=== PATIENT | male | born 1960 | race Caucasian/White ===

== ENCOUNTER 2016-06-27 21:50 | Inpatient (IN) | payer BC, OTHER ==
[~2016-06-27] VITALS: Ht 167.6 cm; Wt 59.1 kg
[2016-06-27 22:28] LABS: HEMATOCRIT 36.1 % (42-52); MEAN CELL VOLUME 95.8 fL (80-100); MEAN CORPUSCULAR HEMOGLOBIN 33.2 pg (25-34); MEAN CORPUSCULAR HGB CONC 34.6 g/dl (32-36); MEAN PLATELET VOLUME 9.6 fL (7.4-10.4); PLATELET COUNT 224 K/uL (130-400); RED BLOOD COUNT 3.77 M/uL (4.7-6.1); WHITE BLOOD COUNT 8.31 K/uL (4.8-10.8)
--- NOTE | 2016-06-27 22:35 | DIAGNOSTIC IMAGING REPORT ---
CHEST ONE VIEW PORTABLE CLINICAL HISTORY: Chest pain. COMPARISON STUDY: No previous studies for comparison. FINDINGS: Lung volumes are normal. No pneumothorax or pleural effusion is present. Cardiac size is normal. Mediastinal contours are normal. There is mild interstitial thickening. No consolidation is identified IMPRESSION: 1. Mild interstitial thickening which could reflect pulmonary edema. 2. No consolidation to suggest pneumonia. Electronically signed by: Moe Pierce M.D. 06/27/2016 10:34 PM Dictated Date/Time: 06/27/2016 10:33 PM
[2016-06-27 22:36] LABS: PARTIAL THROMBOPLASTIN RATIO 1.1; PROTHROMBIN TIME (PATIENT) 11.1 SECONDS (9.0-12.0)
[2016-06-27 22:43] LABS: BLOOD UREA NITROGEN 14 mg/dl (7-18); CALCIUM 8.4 mg/dl (8.5-10.1); CARBON DIOXIDE 34 mmol/L (21-32); CHLORIDE 103 mmol/L (98-107); GLUCOSE 91 mg/dl (70-99); POTASSIUM 3.5 mmol/L (3.5-5.1); SODIUM 139 mmol/L (136-145)
[2016-06-27] MEDS ORDERED: MELATAB2 PO (22:44)
[2016-06-27] MEDS ORDERED: CTP/1 PO (22:44)
[2016-06-27] MEDS ORDERED: TAMS0.4C38 PO (22:44)
[2016-06-27] MEDS ORDERED: DIAZ-165 PO (22:44)
[2016-06-27] MEDS ORDERED: LEVO150T PO (22:44)
[2016-06-27] MEDS ORDERED: IMD/2 PO (22:44)
[2016-06-27] MEDS ORDERED: CALC500C3 PEG (22:44)
[2016-06-27] MEDS ORDERED: LEVE250T PO (22:44)
[2016-06-27] MEDS ORDERED: DOCU-94 PO (22:44)
[2016-06-27] MEDS ORDERED: ONDA8TAB6 PO (22:44)
[2016-06-27] MEDS ORDERED: CITA40TA12 PO (22:44)
[2016-06-27] MEDS ORDERED: DICY10CA55 PO (22:44)
[2016-06-27] MEDS ORDERED: MULT-506 PO (22:44)
[2016-06-27] MEDS ORDERED: METO50TA16 PO (22:44)
[2016-06-27] MEDS ORDERED: DIPH1TAB PO (22:44)
[2016-06-27] MEDS ORDERED: SUCR1TAB29 PO (22:44)
[2016-06-27] MEDS ORDERED: ACET325T96 PO (22:44)
[2016-06-27] MEDS ORDERED: HYDCR1CL TOP (22:44)
[2016-06-27] MEDS ORDERED: IBUP-1050 PO (22:44)
[2016-06-27] MEDS ORDERED: DIAZ10TA PO ×2 (22:44)
[2016-06-27] MEDS ORDERED: DOXE100C4 PO (22:44)
[2016-06-27] MEDS ORDERED: BACI500O11 TOP (22:44)
[2016-06-27] MEDS ORDERED: BUPR1SUB22 SL (22:44)
[2016-06-27] MEDS ORDERED: PROM25TA9 PO (22:44)
[2016-06-27] MEDS ORDERED: PANT40TA PO (22:44)
[2016-06-27 22:45] LABS: ALT/SGPT 13 U/L (12-78); BUN/CREATININE RATIO 15.8 (10-20); CREATININE 0.88 mg/dl (0.60-1.40)
[2016-06-27 22:53] LABS: ALKALINE PHOSPHATASE 110 U/L (45-117); AST/SGOT 12 U/L (15-37); CKMB/CK RATIO 1.4 (0-3.0)
[2016-06-27 23:04] LABS: BENZODIAZEPINE, URINE POS (NEG); COCAINE,URINE POS (NEG); PHENCYCLIDINE, URINE NEG (NEG)
--- NOTE | 2016-06-27 23:59 | EMERGENCY ROOM VISIT NOTE ---
History Report prepared by Kristopher: Antolin Bangura Under the Supervision of: Dr. Shobha Johnson D.O. First contact with patient: 23:43 Chief Complaint: MENTAL HEALTH EVALUATION Stated Complaint: POSSIBLE DETOX, CHEST PRESSURE, VOMITING History of Present Illness The patient is a 56 year old male who presents to the Emergency Room for an acute mental health evaluation. The patient was admitted to [facility] earlier today. He has a history of IVDA, including cocaine, OxyContin, and Suboxone. He denies alcohol use. The patient started to feel nauseous while at [facility]. He then went to the bathroom and vomited several times. The patient also started to feel lightheaded to the point that he was down on his hands and knees. He denies abdominal pain. The patient started to experience visual and auditory hallucinations today. He does not have a history of hallucinations. He takes Celexa for depression. The patient was in rehab once in 1988. and was sober for 15 years. The patient is from [facility]. Source of History: patient Onset: tonight Position: other (psyche) Quality: other (mental health evaluation) Timing: other (acute) Associated Symptoms: + vomiting, No abdominal pain Review of Systems See HPI for pertinent positives & negatives. A total of 10 systems reviewed and were otherwise negative. Past Medical & Surgical Medical Problems: (1) Depression Social History Problems: (1) IV drug abuse Family History No pertinent family history Social History Smoking Status: Never Smoker Alcohol Use: none Drug Use: cocaine, other (opiates) Current/Historical Medications Scheduled Bacitracin (Topical) (Bacitracin), 1 APPLN TOP BID Buprenorphine Hcl-Naloxone Hcl (Suboxone 2-0.5 Mg), Unknown Dose SL BID Citalopram Hydrobromide (Celexa), 40 MG PO DAILY Diazepam (Valium), 10 MG PO QID Diazepam (Valium), 10 MG PO Q2-4H Diazepam (Valium), Unknown Dose PO UD Levetiracetam (Keppra), 500 MG PO BID Levothyroxine Sodium (Synthroid), 150 MCG PO DAILY Loperamide Hcl (Imodium), 2 MG PO UD Melatonin (Melatonin Maximum Strengt), 1 TAB PO HS Metoprolol Tartrate (Lopressor) (Lopressor), 50 MG PO BID Multivitamin (Multivitamin), 1 TAB PO DAILY Pantoprazole (Protonix), 40 MG PO BID Sucralfate (Carafate), 1 GM PO QID Scheduled PRN Acetaminophen Tab (Tylenol), 1-2 TABS PO Q4 PRN for Pain Calcium Carbonate (Tums), 500 MG PEG UD PRN for Heartburn Clonidine Hcl (Catapres), 0.1 MG PO QID PRN for Anxiety Dicyclomine Hcl (Bentyl), 20 MG PO TID PRN for STOMACH CRAMPS Diphenhydramine Hcl (Benadryl Allergy), 1-2 CAP PO Q6 PRN for ALLERGIC REACTION Docusate Sodium (Colace), 1 CAP PO DAILY PRN for Constipation Doxepin Hcl (Doxepin), 50-100 MG PO HS PRN for Insomnia Hydrocortisone 1% (Hydrocortisone 1%), Unknown Dose TOP UD PRN for Itching Ibuprofen (Advil), 1-2 TABS PO Q4 PRN for Headache or Pain Ondansetron Hcl (Zofran), 8 MG PO TID PRN for Nausea or Vomiting Promethazine Hcl (Phenergan), 25 MG PO TID PRN for Nausea or Vomiting Miscellaneous Medications Tamsulosin Hcl (Flomax), 0.4 MG PO Allergies Coded Allergies: No Known Allergies (Unverified , 06/27/16) Physical Exam Vital Signs Date Time Temp Pulse Resp B/P Pulse Ox O2 Delivery O2 Flow Rate FiO2 06/28/16 01:02 52 06/28/16 00:07 59 99/68 97 06/27/16 22:18 99 Nasal Cannula 2.0 06/27/16 22:18 99 Nasal Cannula 2.0 06/27/16 22:06 36.4 76 16 103/64 99 Nasal Cannula 2.0 06/27/16 21:59 68 Physical Exam General: Patient is lethargic. HEENT: Head - normocephalic and atraumatic Pupils are equal, round, and reactive to light. Extraocular eye muscles are intact, and sclera are anicteric. Nose - moist nasal mucosa without discharge. Mouth - moist buccal mucosa. Oropharynx is nonerythematous and there is no tonsillar exudate or edema noted. Neck: Supple; no JVD, nuchal rigidity, cervical lymphadenopathy. Heart: Regular rate and rhythm. There is a normal S1 and S2 with no murmurs, clicks, or gallops appreciated. Lungs: Clear to auscultation bilaterally with no wheezes, rales, or rhonchi. Abdomen: Soft, completely nontender, nondistended, with good bowel sounds. There are no palpable pulsatile masses or hepatosplenomegaly. There is no guarding, rigidity, or rebound noted. Extremities: No evidence of cyanosis, clubbing, or edema. There are easily palpable peripheral pulses. Skin: warm and dry with good turgor and no rashes. Psych: Patient admits to auditory and visual hallucinations. He denies significant depression or suicidal ideation. Medical Decision & Procedures ER Provider Diagnostic Interpretation: X-ray results as stated below per interpretation by me and the radiologist: CHEST ONE VIEW PORTABLE CLINICAL HISTORY: Chest pain. COMPARISON STUDY: No previous studies for comparison. FINDINGS: Lung volumes are normal. No pneumothorax or pleural effusion is present. Cardiac size is normal. Mediastinal contours are normal. There is mild interstitial thickening. No consolidation is identified IMPRESSION: 1. Mild interstitial thickening which could reflect pulmonary edema. 2. No consolidation to suggest pneumonia. Electronically signed by: Moe Pierce M.D. 06/27/2016 10:34 PM Dictated Date/Time: 06/27/2016 10:33 PM Laboratory Results 06/27/16 21:59 06/27/16 21:59 Test 06/27/16 21:59 06/27/16 22:25 Red Blood Count 3.77 M/uL (4.7-6.1) Mean Corpuscular Volume 95.8 fL (80-100) Mean Corpuscular Hemoglobin 33.2 pg (25-34) Mean Corpuscular Hemoglobin Concent 34.6 g/dl (32-36) RDW Standard Deviation 47.1 fL (36.4-46.3) RDW Coefficient of Variation 13.4 % (11.5-14.5) Mean Platelet Volume 9.6 fL (7.4-10.4) Prothrombin Time 11.1 SECONDS (9.0-12.0) Prothromb Time International Ratio 1.0 (0.9-1.1) Activated Partial Thromboplast Time 28.8 SECONDS (21.0-31.0) Partial Thromboplastin Ratio 1.1 Anion Gap 2.0 mmol/L (3-11) Est Creatinine Clear Calc Drug Dose 82.5 ml/min Estimated GFR () 109.7 Estimated GFR (Non- 94.7 BUN/Creatinine Ratio 15.8 (10-20) Calcium Level 8.4 mg/dl (8.5-10.1) Total Bilirubin 0.2 mg/dl (0.2-1) Aspartate Amino Transf (AST/SGOT) 12 U/L (15-37) Alanine Aminotransferase (ALT/SGPT) 13 U/L (12-78) Alkaline Phosphatase 110 U/L (45-117) Total Creatine Kinase 127 U/L (39-308) Creatine Kinase MB 1.8 ng/ml (0.5-3.6) Creatine Kinase MB Ratio 1.4 (0-3.0) Troponin I < 0.015 ng/ml (0-0.045) Total Protein 6.5 gm/dl (6.4-8.2) Albumin 3.2 gm/dl (3.4-5.0) Globulin 3.3 gm/dl (2.5-4.0) Albumin/Globulin Ratio 1.0 (0.9-2) Salicylates Level 23.2 mg/dl (2.8-20) Acetaminophen Level < 2 ug/ml (10-30) Ethyl Alcohol mg/dL < 3.0 mg/dl (0-3) Urine Opiates Screen POS (NEG) Urine Methadone, Qualitative NEG (NEG) Urine Barbiturates NEG (NEG) Urine Phencyclidine (PCP) Level NEG (NEG) Ur Amphetamine/Methamphetamine NEG (NEG) MDMA (Ecstasy) Screen NEG (NEG) Urine Benzodiazepines Screen POS (NEG) Urine Cocaine Metabolite POS (NEG) Urine Marijuana (THC) NEG (NEG) Laboratory results per my review. ECG Indication: toxicologic Rate (beats per minute): 68 Rhythm: normal sinus Findings: no acute ischemic change, no ectopy ED Course 2351: Past medical records reviewed. The patient was evaluated in room A7. A complete history and physical exam was performed. An IV lock was initiated and labs are drawn as above. A twelve-lead EKG was obtained as described above. The patient had a chest x-ray. A urine specimen was obtained. 0100: Spoke with Dr. Hennessy, [facility]. The patient will be evaluated. Medical Decision The patient is a 56 year old male who presents to the ED for a mental health evaluation. Differential diagnosis includes auditory hallucinations, visual hallucinations, cocaine abuse, opioid abuse, mood disorder. Laboratory interpretation: No white blood cell count, slightly anemic with a hemoglobin of 12.5, negative troponin, normal renal function and LFTs, glucose is 91, normal coagulation studies, alcohol was negative, tox screen was positive for opiates cocaine and benzos, salicylates 23.2, Tylenol less than 2. This is a 48-year-old male patient with a history of polysubstance abuse. He has been abusing IV cocaine, opioids, and Suboxone. He has sought rehabilitation at [facility] but began to develop hallucinations tonight. These may be symptoms of withdrawal. I have discussed the case with the [facility] and they will evaluate for further management. Consults Time Called: 54 Consulting Physician: Dr. Hennessy, [facility] Returned Call: [phone]: Spoke with Dr. Hennessy, [facility]. The patient will be evaluated. Impression Primary Impression: Opiate withdrawal Additional Impression: Thought disorder Scribe Attestation The scribe's documentation has been prepared under my direction and personally reviewed by me in its entirety. I confirm that the note above accurately reflects all work, treatment, procedures, and medical decision making performed by me. Departure Information Dispostion Being Evaluated By Hospitalist Patient Instructions My [facility] Health Problem Qualifiers
[2016-06-28] VITALS (10 sets, daily range): BP systolic 94–131; BP diastolic 59–77; PULSE 43–98; TEMP 36.2–36.7; O2SAT 95–98; Ht 167.6 cm; Wt 59.1 kg
[2016-06-28 00:01] LABS: ACETAMINOPHEN < 2 ug/ml (10-30)
[2016-06-28] MEDS ORDERED: ONDANSETRON INJ 2 MG/ML 2 ML VIAL IV PRN (02:15)
[2016-06-28] MEDS ORDERED: ZOLPIDEM TARTRATE 5 MG TAB PO PRN (02:15)
[2016-06-28] MEDS ORDERED: CALCIUM CARBONATE 500 MG CHEWABLE PO PRN (02:15)
[2016-06-28] MEDS ORDERED: LORAZEPAM INJ 1 MG in SYRINGE 0.5 ML IV PRN (02:15)
[2016-06-28] MEDS ORDERED: LORAZEPAM 2 MG/ML 1 ML VIAL IV PRN ×2 (02:15→02:45)
[2016-06-28] MEDS ORDERED: PROMETHAZINE HCL INJ 25 MG in SODIUM CHLORIDE 0.9% 50ML 50 ML IV PRN (02:15)
[2016-06-28] MEDS ORDERED: ACETAMINOPHEN 325 MG TAB PO PRN (02:15)
[2016-06-28] MEDS ORDERED: DOCUSATE SODIUM 100 MG CAP PO PRN (02:15)
[2016-06-28] MEDS ORDERED: HYDROCORTISONE 1% CR 30 GM TUBE EXT PRN (02:15)
[2016-06-28] MEDS ORDERED: DiphenhydrAMINE HCL 50 MG/ML VIAL IV PRN (02:15)
[2016-06-28] MEDS ORDERED: DICYCLOMINE HCL 10 MG CAP PO PRN (02:15)
[2016-06-28] MEDS ORDERED: LOPERAMIDE HCL 2 MG CAP PO PRN (02:15)
[2016-06-28] MEDS ORDERED: DIAZEPAM 5MG TAB PO STA (02:22)
[2016-06-28] MEDS: NSS + 20MEQ KCL 1000ML 1,000 ML IV SCH ×3 (03:05→22:55)
--- NOTE | 2016-06-28 04:33 | History and Physical ---
History & Physical Date & Time of Service: Jun 28, 2016 at 04:23 Chief Complaint: Acute Drug Withdrawal Syndrome Primary Care Physician: No Doctor, Assigned History of Present Illness Source: patient, clinic records The patient is a 56-year-old male who is admitted earlier in the day to [facility] in [place], she was referred to the emergency department for an acute mental health evaluation. He has history of IVDA, including cocaine, OxyContin and Suboxone. When he arrived at [facility] he started to feel nauseous, then went to the bathroom and vomited several times. He became so lightheaded that he went down on his hands and knees. He began to experience visual and auditory hallucinations, without previous occurrence of these. He has history of being admitted to rehabilitation in 1988. His home is in [place], [place]. Past Medical/Surgical History Medical Problems: (1) Depression Status: Chronic Social History Problems: (1) IV drug abuse Status: Chronic Family History No pertinent family history Social History Smoking Status: Current Every Day Smoker Smokeless Tobacco Use: No Alcohol Use: none Drug Use: cocaine, other (opiates) Marital Status: Housing status: lives with family Occupational Status: employed Multi-Drug Resistant [employer] History of MDRO: No Allergies Coded Allergies: No Known Allergies (Unverified , 06/27/16) Home Medications Scheduled Bacitracin (Topical) (Bacitracin), 1 APPLN TOP BID Buprenorphine Hcl-Naloxone Hcl (Suboxone 2-0.5 Mg), Unknown Dose SL BID Citalopram Hydrobromide (Celexa), 40 MG PO DAILY Diazepam (Valium), 10 MG PO QID Diazepam (Valium), 10 MG PO Q2-4H Diazepam (Valium), Unknown Dose PO UD Levetiracetam (Keppra), 500 MG PO BID Levothyroxine Sodium (Synthroid), 150 MCG PO DAILY Loperamide Hcl (Imodium), 2 MG PO UD Melatonin (Melatonin Maximum Strengt), 1 TAB PO HS Metoprolol Tartrate (Lopressor) (Lopressor), 50 MG PO BID Multivitamin (Multivitamin), 1 TAB PO DAILY Pantoprazole (Protonix), 40 MG PO BID Sucralfate (Carafate), 1 GM PO QID Scheduled PRN Acetaminophen Tab (Tylenol), 1-2 TABS PO Q4 PRN for Pain Calcium Carbonate (Tums), 500 MG PEG UD PRN for Heartburn Clonidine Hcl (Catapres), 0.1 MG PO QID PRN for Anxiety Dicyclomine Hcl (Bentyl), 20 MG PO TID PRN for STOMACH CRAMPS Diphenhydramine Hcl (Benadryl Allergy), 1-2 CAP PO Q6 PRN for ALLERGIC REACTION Docusate Sodium (Colace), 1 CAP PO DAILY PRN for Constipation Doxepin Hcl (Doxepin), 50-100 MG PO HS PRN for Insomnia Hydrocortisone 1% (Hydrocortisone 1%), Unknown Dose TOP UD PRN for Itching Ibuprofen (Advil), 1-2 TABS PO Q4 PRN for Headache or Pain Ondansetron Hcl (Zofran), 8 MG PO TID PRN for Nausea or Vomiting Promethazine Hcl (Phenergan), 25 MG PO TID PRN for Nausea or Vomiting Miscellaneous Medications Tamsulosin Hcl (Flomax), 0.4 MG PO Review of Systems The patient denies chest pain, palpitations, shortness of breath, cough, lower extremity swelling, vision change, hearing change, sore throat, fevers, chills, sweats, abdominal pain, pelvic pain, blood in urine or stool, dysuria, urinary frequency or urgency, headache, memory loss, rash, abnormal bruising or bleeding, imbalance, focal weakness, numbness or tingling in arms or legs, arthralgias or myalgias, back or neck pain, or allergy symptoms. The review of systems is otherwise negative other than for that already noted above, and at least 10 systems have been reviewed. Physical Exam Vital Signs Date Time Temp Pulse Resp B/P Pulse Ox O2 Delivery O2 Flow Rate FiO2 06/28/16 03:05 Room Air 06/28/16 03:04 36.4 60 18 113/74 96 Room Air 06/28/16 02:26 36.4 58 16 111/62 98 06/28/16 01:59 36.4 58 111/62 98 Room Air 06/28/16 01:02 52 06/28/16 00:07 59 99/68 97 06/27/16 22:18 99 Nasal Cannula 2.0 06/27/16 22:18 99 Nasal Cannula 2.0 06/27/16 22:06 36.4 76 16 103/64 99 Nasal Cannula 2.0 06/27/16 21:59 68 The patient is awake, alert and oriented 3, appears cachectic and unkempt, normocephalic and atraumatic, lying in bed and in no acute distress. HEENT--PERRL, EOMI, mucous membranes and oropharynx dry. Neck--supple, no JVD or bruits, thyroid normal, trachea midline, no adenopathy. Heart--normal S1 and S2, no extra beats, no murmurs, rubs or gallops. Lungs--decreased breath sounds throughout, no respiratory distress, no accessory muscle use. Abdomen--normal bowel sounds and soft, nontender and nondistended, no hernias or masses, no organomegaly. Extremities--no cyanosis, clubbing or edema. There are good distal pulses b/l. Dermatologic--normal skin turgor, normal color, warm and dry, no abnormal lymph nodes, no rash. Neurologic--cranial nerves II through XII grossly intact, motor and sensory examination normal. Rheumatologic--normal range of motion, nontender, muscles and joints. Psychiatric--depressed, tearful and crying. Diagnostics Laboratory Results Results Past 24 Hours Test 06/27/16 21:59 06/27/16 22:25 Range/Units White Blood Count 8.31 4.8-10.8 K/uL Red Blood Count 3.77 4.7-6.1 M/uL Hemoglobin 12.5 14.0-18.0 g/dL Hematocrit 36.1 42-52 % Mean Corpuscular Volume 95.8 80-100 fL Mean Corpuscular Hemoglobin 33.2 25-34 pg Mean Corpuscular Hemoglobin Concent 34.6 32-36 g/dl RDW Standard Deviation 47.1 36.4-46.3 fL RDW Coefficient of Variation 13.4 11.5-14.5 % Platelet Count 224 130-400 K/uL Mean Platelet Volume 9.6 7.4-10.4 fL Prothrombin Time 11.1 9.0-12.0 SECONDS Prothromb Time International Ratio 1.0 0.9-1.1 Activated Partial Thromboplast Time 28.8 21.0-31.0 SECONDS Partial Thromboplastin Ratio 1.1 Sodium Level 139 136-145 mmol/L Potassium Level 3.5 3.5-5.1 mmol/L Chloride Level 103 98-107 mmol/L Carbon Dioxide Level 34 21-32 mmol/L Anion Gap 2.0 3-11 mmol/L Blood Urea Nitrogen 14 7-18 mg/dl Creatinine 0.88 0.60-1.40 mg/dl Est Creatinine Clear Calc Drug Dose 82.5 ml/min Estimated GFR () 109.7 Estimated GFR (Non- 94.7 BUN/Creatinine Ratio 15.8 10-20 Random Glucose 91 70-99 mg/dl Calcium Level 8.4 8.5-10.1 mg/dl Total Bilirubin 0.2 0.2-1 mg/dl Aspartate Amino Transf (AST/SGOT) 12 15-37 U/L Alanine Aminotransferase (ALT/SGPT) 13 12-78 U/L Alkaline Phosphatase 110 45-117 U/L Total Creatine Kinase 127 39-308 U/L Creatine Kinase MB 1.8 0.5-3.6 ng/ml Creatine Kinase MB Ratio 1.4 0-3.0 Troponin I < 0.015 0-0.045 ng/ml Total Protein 6.5 6.4-8.2 gm/dl Albumin 3.2 3.4-5.0 gm/dl Globulin 3.3 2.5-4.0 gm/dl Albumin/Globulin Ratio 1.0 0.9-2 Salicylates Level 23.2 2.8-20 mg/dl Acetaminophen Level < 2 10-30 ug/ml Ethyl Alcohol mg/dL < 3.0 0-3 mg/dl Urine Opiates Screen POS NEG Urine Methadone, Qualitative NEG NEG Urine Barbiturates NEG NEG Urine Phencyclidine (PCP) Level NEG NEG Ur Amphetamine/Methamphetamine NEG NEG MDMA (Ecstasy) Screen NEG NEG Urine Benzodiazepines Screen POS NEG Urine Cocaine Metabolite POS NEG Urine Marijuana (THC) NEG NEG Diagnostic Radiology Patient Name: LEDY MOSELEY Unit Number: [id number] Dictated: 06/27/162232 Transcribed: 06/27/162232 SAMI Printed Date/Time: [~ rep prt dt]/[~ rep prt tm] [~ rep ct labl] - [~ rep ct ivnm] [facility] [place] [place] [address] Dictated: 06/27/162232 Transcribed: 06/27/162232 JA Printed Date/Time: [~ rep prt dt]/[~ rep prt tm] [~ rep ct labl] - [~ rep ct ivnm] CHEST ONE VIEW PORTABLE CLINICAL HISTORY: Chest pain. COMPARISON STUDY: No previous studies for comparison. FINDINGS: Lung volumes are normal. No pneumothorax or pleural effusion is present. Cardiac size is normal. Mediastinal contours are normal. There is mild interstitial thickening. No consolidation is identified IMPRESSION: 1. Mild interstitial thickening which could reflect pulmonary edema. 2. No consolidation to suggest pneumonia. Electronically signed by: Moe Pierce M.D. 06/27/2016 10:34 PM Dictated Date/Time: 06/27/2016 10:33 PM The status of this report is Signed. Draft = Not yet reviewed or approved by Radiologist. Signed = Reviewed and approved by Radiologist. <AttendingPhy></AttendingPhy> <FamilyPhy></FamilyPhy> <PrimaryPhy></PrimaryPhy> <UnitNumber>[id number]</UnitNumber> <VisitNumber>[id number]</VisitNumber> < PatientName>LEDY MOSELEY</PatientName> <DateOfBirth>1960</ DateOfBirth> <Location>[facility]</Location> <ServiceDate>06/27/16</ServiceDate> <MNE >ESINDI</MNE> <OrderingPhy>ED, PROTOCOL</OrderingPhy> <OrderingPhyMNE>f rep ord dr durham</OrderingPhyMNE> <DictatingPhyMNE>f rep dict dr durham</DictatingPhyMNE> < CCListMNE>f rep ct mne</CCListMNE> <AdmittingPhyMNE>f pt admit dr durham</ AdmittingPhyMNE> <AttendingPhyMNE>f pt attend dr durham</AttendingPhyMNE> <ConsultingPhyMNE>f pt consult dr durham</ConsultingPhyMNE> <FamilyPhyMNE>f pt fam dr durham</FamilyPhyMNE> <OtherPhyMNE>f pt other dr durham</OtherPhyMNE> < PrimaryPhyMNE>f pt prim care dr durham</PrimaryPhyMNE> <ReferringPhyMNE>f pt referring dr durham</ReferringPhyMNE> EKG EKG shows normal sinus rhythm at 68 bpm, there are no acute ST-T changes. Impression Assessment and Plan Acute multiple drug withdrawal, with IV drug abuse history including cocaine, OxyContin and Suboxone with recent admission to [facility]. The patient be admitted to the telemetry unit. We'll continue diazepam 10 mg by mouth 4 times a day, Celexa 40 mg by mouth daily, Keppra 500 mg by mouth twice a day, and we'll have lorazepam 1 mg IV every 2 hours when necessary available. We'll consult psychiatry. Continue clonidine 0.1 mg by mouth 4 times a day when necessary anxiety. GERD--continue pantoprazole 40 mg by mouth twice a day and Carafate 1 g by mouth 4 times a day. Hypothyroidism--continue levothyroxine sodium 150 g by mouth daily. Hypertension--continue metoprolol tartrate 50 mg by mouth twice a day with hold parameters. Insomnia-- continue melatonin 3 mg by mouth at bedtime. BPH--continue tamsulosin 0.4 mg by mouth at bedtime. Level of Care Telemetry Advanced Directives Existing Advance Directive: No Existing Living Will: No Existing Power of Truck Terminal Manager: No Resuscitation Status FULL RESUSCITATION VTE Prophylaxis VTE Risk Assessment Done? Y/N: Yes Risk Level: Moderate Given or contraindicated: SCD's
[2016-06-28] MEDS: LEVOTHYROXINE 150 MCG TAB PO SCH (05:48)
[2016-06-28] MEDS: CLONIDINE HCL 0.1 MG TAB PO PRN (08:29)
[2016-06-28] MEDS: MULTIVITAMIN TAB PO SCH (08:29)
[2016-06-28] MEDS: PANTOprazole SOD 40 MG TAB PO SCH ×2 (08:29→21:02)
[2016-06-28] MEDS: LEVETIRACETAM 250 MG TAB PO SCH ×2 (08:29→21:01)
[2016-06-28] MEDS: CITALOPRAM 40 MG TAB PO SCH (08:30)
[2016-06-28] MEDS: SUCRALFATE 1 GM TAB PO SCH ×4 (08:30→21:00)
[2016-06-28] MEDS: METOPROLOL TARTRATE 50 MG TAB PO SCH ×2 (08:30→21:01)
[2016-06-28] MEDS ORDERED: DIAZEPAM 5MG TAB PO SCH (09:00)
--- NOTE | 2016-06-28 10:24 | Psychiatric Progress Notes ---
Psychiatric Progress Note Date of Service Jun 28, 2016. Notes attempted to see patient after confirming with Dr. Quiles that he is not rounding at hospital as initial consult placed for his name. Patient was difficult to arouse and unable to stay awake for assessment. Reviewed available information from [facility] which is essentially MAR and incident report of him vomiting blood and then c/o seeing shadows in context of dizziness /presyncope. Per ED note: He has a history of IVDA, including cocaine, OxyContin , and Suboxone. He denies alcohol use. He takes Celexa for depression. The patient was in rehab once in 1988. and was sober for 15 years. The patient is from [place] originally. likely presyncopal phenomena and/or withdrawal related, doubt any acute need for psych intervention. Liaison to work with medical team to determine appropriateness of consult when more awake. Dispos should be return to rehab.
[2016-06-28 12:54] LABS: HEMATOCRIT 36.4 % (42-52); MEAN CELL VOLUME 99.2 fL (80-100); MEAN CORPUSCULAR HEMOGLOBIN 32.4 pg (25-34); MEAN CORPUSCULAR HGB CONC 32.7 g/dl (32-36); MEAN PLATELET VOLUME 9.8 fL (7.4-10.4); PLATELET COUNT 220 K/uL (130-400); RED BLOOD COUNT 3.67 M/uL (4.7-6.1)
[2016-06-28 13:17] LABS: ALB/GLOB RATIO 1.1 (0.9-2); BUN/CREATININE RATIO 13.9 (10-20); CALCIUM 8.3 mg/dl (8.5-10.1); CREATININE 0.94 mg/dl (0.60-1.40); POTASSIUM 4.4 mmol/L (3.5-5.1)
[2016-06-28] MEDS ORDERED: DIAZEPAM 5MG TAB PO ONE (15:00)
--- NOTE | 2016-06-28 15:46 | Hospitalist Progress Note ---
Hospitalist Progress Note Date of Service Jun 28, 2016. (Jane Jackson ., CESAR) Subjective Pt evaluation today including: conversation w/ patient, physical exam, chart review, lab review, review of studies, conversation w/ mental hygiene consultant, review of inpatient medication list Patient very lethargic during my examination, could not provide any ROS besides telling me that he felt "drained." Repeatedly attempted to rouse patient but fell right back asleep. Additional Comments: Unable to obtain ROS from patient due to lethargy/mental status. (Jane Jackson, CESAR) Objective Vital Signs Date Time Temp Pulse Resp B/P Pulse Ox O2 Delivery O2 Flow Rate FiO2 06/28/16 11:46 95 Room Air 06/28/16 10:48 36.5 43 20 94/59 95 Room Air 06/28/16 07:58 Room Air 06/28/16 07:24 36.5 98 20 107/68 98 Room Air 06/28/16 03:05 Room Air 06/28/16 03:04 36.4 60 18 113/74 96 Room Air 06/28/16 02:26 36.4 58 16 111/62 98 06/28/16 01:59 36.4 58 111/62 98 Room Air 06/28/16 01:02 52 06/28/16 00:07 59 99/68 97 06/27/16 22:18 99 Nasal Cannula 2.0 06/27/16 22:18 99 Nasal Cannula 2.0 06/27/16 22:06 36.4 76 16 103/64 99 Nasal Cannula 2.0 06/27/16 21:59 68 (Jane Jackson, TOANC) Physical Exam General Appearance: WD/WN, no apparent distress, + pertinent finding (very lethargic, unable to participate in interview/examination) Eyes: normal inspection, sclerae normal, + pertinent finding (exam limited by lethargy) ENT: normal ENT inspection, hearing grossly normal, + pertinent finding (exam limited by lethargy) Neck: supple, no JVD, trachea midline Respiratory/Chest: lungs clear, normal breath sounds, no respiratory distress Cardiovascular: regular rate, rhythm, no gallop, no murmur Abdomen: normal bowel sounds, soft, + tenderness (diffuse tenderness) Extremities: non-tender, normal inspection, no pedal edema Neurologic/Psychiatric: + pertinent finding (lethargic, unable to keep pt awake during exam. rouses very briefly before going back to sleep. unable to determine mood or orientation.) Skin: normal color, warm/dry, no rash (Jane Jackson ., CESAR) Laboratory Results Last 24 Hours Test 06/27/16 21:59 06/27/16 22:25 06/28/16 12:33 06/28/16 12:35 White Blood Count 8.31 K/uL 5.80 K/uL Red Blood Count 3.77 M/uL 3.67 M/uL Hemoglobin 12.5 g/dL 11.9 g/dL Hematocrit 36.1 % 36.4 % Mean Corpuscular Volume 95.8 fL 99.2 fL Mean Corpuscular Hemoglobin 33.2 pg 32.4 pg Mean Corpuscular Hemoglobin Concent 34.6 g/dl 32.7 g/dl RDW Standard Deviation 47.1 fL 49.6 fL RDW Coefficient of Variation 13.4 % 13.8 % Platelet Count 224 K/uL 220 K/uL Mean Platelet Volume 9.6 fL 9.8 fL Prothrombin Time 11.1 SECONDS Prothromb Time International Ratio 1.0 Activated Partial Thromboplast Time 28.8 SECONDS Partial Thromboplastin Ratio 1.1 Sodium Level 139 mmol/L 141 mmol/L Potassium Level 3.5 mmol/L 4.4 mmol/L Chloride Level 103 mmol/L 106 mmol/L Carbon Dioxide Level 34 mmol/L 34 mmol/L Anion Gap 2.0 mmol/L 1.0 mmol/L Blood Urea Nitrogen 14 mg/dl 13 mg/dl Creatinine 0.88 mg/dl 0.94 mg/dl Est Creatinine Clear Calc Drug Dose 82.5 ml/min 77.3 ml/min Estimated GFR () 109.7 103.2 Estimated GFR (Non- 94.7 89.0 BUN/Creatinine Ratio 15.8 13.9 Random Glucose 91 mg/dl 78 mg/dl Calcium Level 8.4 mg/dl 8.3 mg/dl Total Bilirubin 0.2 mg/dl 0.3 mg/dl Aspartate Amino Transf (AST/SGOT) 12 U/L 12 U/L Alanine Aminotransferase (ALT/SGPT) 13 U/L 12 U/L Alkaline Phosphatase 110 U/L 71 U/L Total Creatine Kinase 127 U/L Creatine Kinase MB 1.8 ng/ml Creatine Kinase MB Ratio 1.4 Troponin I < 0.015 ng/ml Total Protein 6.5 gm/dl 5.8 gm/dl Albumin 3.2 gm/dl 3.0 gm/dl Globulin 3.3 gm/dl 2.8 gm/dl Albumin/Globulin Ratio 1.0 1.1 Salicylates Level 23.2 mg/dl 13.8 mg/dl Acetaminophen Level < 2 ug/ml Ethyl Alcohol mg/dL < 3.0 mg/dl Urine Opiates Screen POS Urine Methadone, Qualitative NEG Urine Barbiturates NEG Urine Phencyclidine (PCP) Level NEG Ur Amphetamine/Methamphetamine NEG MDMA (Ecstasy) Screen NEG Urine Benzodiazepines Screen POS Urine Cocaine Metabolite POS Urine Marijuana (THC) NEG (Jane Jackson, CESAR) Assessment and Plan 56 y/o male with a history of IVDA, depression, HTN, BPH and hypothyroidism who presented to the ED after developing nausea, vomiting, and hallucinations after checking himself in at [facility] in [place]. Per [facility] records, the patient was found to have bright red hematemesis. Pt has history of cocaine, oxycodone, hydrocodone and benzodiazepine abuse and is on Suboxone. Pt had been scheduled for a taper of his Valium per [facility] records. Pt was awake and oriented with VSS upon arrival. Multiple drug withdrawal--drug abuse history including cocaine, oxycodone, hydrocodone, benzos -Admit to telemetry -Continue Valium taper per [facility] records: Valium 10 mg PO TID x 1 day, 10 mg PO BID x 2 days, 5 mg PO TID x 2 days, 5 mg PO BID x 2 days, 5 mg PO qhs x 2 days then stop. -Consult psychiatry, appreciate recs regarding best approach for withdrawal and current medications -Lorazepam 1 mg IV q2h prn withdrawal s/s for now -Continue Keppra 500 mg PO BID -Repeat salicylates level at 13.8 Hematemesis, GERD -Continue Protonix 40 mg PO BID and Carafate 1 gm PO QID -Consult GI, appreciate recs Depression -Continue Celexa 40 mg PO qd HTN--stable -Continue Lopressor 50 mg PO BID, hold if SBP <90 or HR >100 BPH -Continue tamsulosin 0.4 mg PO qhs Hypothyroidism -Continue Synthroid 150 mcg PO qd Code Status -Level I, FULL RESUSCITATION STATUS (Jane Jackson ., CESAR) Reviewed: Pt Seen/Exam by Me, VALENTINA Notes, Labs (Kelly Mcneill MD) History Physician Senior Technical Program Manager Supervision Note: I interviewed and examined the patient. Discussed with LOPEZ Jackson and agree with findings and plan as documented in the note. Any exceptions or clarifications are listed here: pt more awake for me later in day, admits to taking large amounts of hydrocodone /APAP, ativan, cocaine all illicitly. Has a h/o seizures from withdrawal from benzos in the past. No EtOH use at all. Still motivated to go to rehab, reports had gagging up of several handfuls of bright red blood yesterday before the hallucinations. Vitals reviewed NAD, drowsy but awake and eating lunch RRR no wcr CTAB no wcr Abd soft NT ND +BS Ext no edema 56 yo male with polysubstance abuse. Salicylate level improved on repeat test, no metabolic acidosis. Vitals all stable continue valium taper given h/o seizures from benzo withdrawal in the past, suboxone taper to be considered if has opiate withdrawal -continue keppra -appreciate Psych consult -to rehab when medically stable/detoxed GI bleeding, GERD-spitting up blood after cocaine use--> seems to be coming from GI tract but could be from posterior epistaxis? -consult to GI appreciated -continue PPI, carafate -EGD tomorrow is planned -consider workup for GB disease as per GI Documented By: Kelly Mcneill (Kelly Mcneill MD)
--- NOTE | 2016-06-28 19:51 | GASTROINTESTINAL CONSULTATION ---
DATE OF CONSULTATION: 06/28/2016 REQUESTING PROVIDER: Dr. Mcneill. CHIEF COMPLAINT: Spitting up blood, nausea and vomiting. HISTORY OF PRESENT ILLNESS: Mr. Brandt is a 56-year-old male admitted to the hospital from [facility] in [place], referred for acute mental health evaluation. The patient has a history of IV drug use including cocaine, Suboxone and OxyContin. The patient reports that when using cocaine, he sometimes will develop intense nausea and can also at times begin to "spit up blood." During a recent attack, he became lightheaded and had a near-syncopal event. The patient has a history of chronic drug abuse and is from the [facility]. The patient does not report any prior history of loren coffee-ground emesis, hematemesis, melena or bright red blood per rectum. PAST MEDICAL HISTORY: Includes depression and IV drug use. He has no reported surgeries in the past. FAMILY HISTORY: Noncontributory for the presenting symptoms. SOCIAL HISTORY: The patient smokes. Denies alcohol use. He is and lives with his family. ALLERGIES: He has no known drug allergies. HOME MEDICATIONS: Include bacitracin, Suboxone, citalopram, diazepam, Keppra, Synthroid, melatonin, Lopressor, multivitamins, pantoprazole and Carafate. He is also on tamsulosin (Flomax) REVIEW OF SYSTEMS: Otherwise noncontributory based on 14-point exam. The patient denies any history of prior surgeries, gallbladder problems, changes in bowel habits, rectal bleeding, melena, dysuria or hematuria or disorders of skin. PHYSICAL EXAMINATION: VITAL SIGNS: On admission on the , he is afebrile at 36.4, blood pressure 130/64, pulse ox 99% 2 liters, pulse 76, and respirations 16. GENERAL: The patient is awake, alert and oriented and resting in bed. SKIN: The patient's skin has tattoos. There are no rashes. HEENT: The sclerae are anicteric. The conjunctivae are moist. The oral mucosa is moist. NECK: There is no cervical or supraclavicular adenopathy. I do not appreciate thyromegaly. LUNGS: Clear to auscultation. HEART: Normal S1, S2. There are no wheezes. ABDOMEN: Soft, nontender, nondistended with good bowel sounds. There is no rebound or guarding. I do not appreciate hepatosplenomegaly. There are no abdominal bruits. EXTREMITIES: Without clubbing, cyanosis or edema. RECTAL: Deferred. LABORATORY STUDIES: On admission - white count 8.3, hemoglobin 12.5, MCV 96, platelets are 224,000. INR 1.0. Potassium 3.5, BUN and creatinine 14 and 0.9. AST 12, ALT 13, alkaline phosphatase 110, CPK is 127 with an MB fraction of 1.8. Troponins are less than 0.015. Albumin is 3.2. Salicylates are 23.2, Tylenol is undetected as is ethanol. Urine opiates are positive as are benzodiazepines and cocaine metabolites. IMAGING DATA: The patient had a chest x-ray which shows mild interstitial thickening, which may reflect pulmonary edema but no evidence for pneumonia. EKG was sinus rhythm without ST changes. IMPRESSION AND PLAN: This is a 56-year-old male with intravenous drug abuse including cocaine and opiates with inpatient rehabilitation admission. The patient also has symptoms of reflux for which he takes pantoprazole and Carafate. There was a suggestion of the patient bringing up blood. It was difficult to get a clear history and description from the patient, however, it would appear that the patient, when using cocaine will sometimes vomit, but in some instances he does not vomit and in coughing or trying to clear his throat, he will see blood. Therefore, it is unclear if this represents hemostasis or blood from the oropharyngeal area or true hematemesis. Based on these symptoms, I believe it is reasonable to obtain an upper endoscopy and will arrange for this tomorrow. The patient is agreeable. He had eaten already today, at the time that he is being seen. His vital signs were otherwise stable. The patient's symptoms of nausea and gastrointestinal symptoms in relation to cocaine could reflect the drug toxicity and its impact on his intestinal vasculature (a vasospasm) and obvious counseling is important to avoid an acute intestinal ischemia, due to this process. This would also have the same impact on his coronary status. If these symptoms of nausea persist, then consideration for a gallbladder workup may be reasonable, as the patient denied any history of gallbladder surgery. Additionally, if there is any suggestion of persistent nausea or weight loss which the patient currently describes then arteriovascular mesenteric Dopplers may be helpful. Would continue proton pump inhibitor and sucralfate. Further recommendations to follow. Thank you for allowing me to participate in this patient's care.
[2016-06-28] MEDS: TAMSULOSIN HCL 0.4 MG CAP PO SCH (21:00)
[2016-06-28] MEDS ORDERED: NON-FORMULARY MEDICATION (Melatonin (Melatonin Maximum Strengt) 1 TAB) PO SCH (21:00)
[2016-06-29] VITALS (8 sets, daily range): BP systolic 96–115; BP diastolic 54–70; PULSE 53–66; TEMP 36.3–36.7; O2SAT 96–98
[2016-06-29] MEDS: LEVOTHYROXINE 150 MCG TAB PO SCH (06:00)
[2016-06-29 06:18] LABS: BASO % 0.7 %; BASO ABS # 0.04 K/uL (0-0.2); COMPLETE YES; HEMATOCRIT 34.6 % (42-52); IG% 0.3 %; LYMPH % 41.8 %; LYMPH ABS # 2.49 K/uL (1.2-3.4); MEAN CELL VOLUME 97.2 fL (80-100); MEAN CORPUSCULAR HEMOGLOBIN 33.1 pg (25-34); MEAN CORPUSCULAR HGB CONC 34.1 g/dl (32-36); MEAN PLATELET VOLUME 9.8 fL (7.4-10.4); MONO % 6.1 %; NEUT % 48.1 %; PLATELET COUNT 228 K/uL (130-400); RED BLOOD COUNT 3.56 M/uL (4.7-6.1); WHITE BLOOD COUNT 5.95 K/uL (4.8-10.8)
[2016-06-29 06:49] LABS: BUN/CREATININE RATIO 17.2 (10-20); CALCIUM 7.5 mg/dl (8.5-10.1); CREATININE 0.87 mg/dl (0.60-1.40); MAGNESIUM 2.2 mg/dl (1.8-2.4); POTASSIUM 3.8 mmol/L (3.5-5.1)
[2016-06-29 07:03] LABS: THYROID STIMULATING HORMONE 3.75 uIu/ml (0.300-4.500)
[2016-06-29] MEDS: METOPROLOL TARTRATE 50 MG TAB PO SCH ×2 (09:00→20:07)
[2016-06-29] MEDS: NSS + 20MEQ KCL 1000ML 1,000 ML IV SCH (09:35)
[2016-06-29] MEDS: SUCRALFATE 1 GM TAB PO SCH ×4 (09:36→20:08)
[2016-06-29] MEDS: PANTOprazole SOD 40 MG TAB PO SCH (09:36)
[2016-06-29] MEDS: CITALOPRAM 40 MG TAB PO SCH (09:38)
[2016-06-29] MEDS: MULTIVITAMIN TAB PO SCH (09:38)
[2016-06-29] MEDS: LEVETIRACETAM 250 MG TAB PO SCH (09:39)
[2016-06-29] MEDS: DIAZEPAM 5MG TAB PO SCH ×3 (09:41→20:10)
--- NOTE | 2016-06-29 12:42 | Psychiatric Consultation ---
Consultation Identifying Data 56-year-old white male from [facility] with a history of cocaine, opiate, and benzodiazepine abuse and presented via EMS from [facility] for hematemesis, chest pain, and altered mental status. He has been admitted medically with a GI consult, and psychiatry was consulted for "drug withdrawal with hallucinations." Chief Complaint "Pretty sleepy". History of Present Illness Per records, the patient presented to [facility] for treatment of polysubstance abuse on 06/27/2016. He reported that he had used IV cocaine, Suboxone, hydrocodone, Ativan, and alcohol (listed on the EMS report, but patient denied on presentation here) the date prior to presenting at rehabilitation. He had driven to [place] for rehabilitation from his home in [place], and reported that he had palpitations, emesis, and hematemesis. He was started on a Valium taper and multiple medications for symptomatic treatment of substance withdrawal at rehabilitation, but that evening, had an episode of hematemesis and chest pain, and told staff he was seeing black things flying and hearing buzzing sounds. In the emergency room here, he was found to be slightly anemic with low hemoglobin, and was hypotensive. Toxicology screen was positive for opiates, cocaine, and benzodiazepines, with an elevated salicylate level. He was thought to be in withdrawal from multiple substances, and was admitted to the hospitalist service. Dr. Laura attempted to see the patient yesterday, but he was sedated and unable to participate in the assessment. Today, he states that he is still tired, but is able to respond to questions appropriately. He states he has poor recall for the events prior to admission, but does remember "seeing things" at rehabilitation, and remembers to talking to somebody in the ambulance. He denies that he's ever had hallucinations before, and they resolved on the day of presentation. He reports significant substance abuse as detailed below, and plans to return to rehabilitation when he is medically cleared. He reports stress, is worried about losing his job, stating that he didn't talk to his employer before he left for rehabilitation, but then says he left messages with his human resources department and was also working with somebody in his employer's EAP program, and they were aware that he was going for substance abuse treatment. He puts a history of depression for which she was treated with Celexa for about 10 years, but states he has been noncompliant with the medication for the past year and has been abusing multiple substances. He denies suicidal thoughts, homicidal thoughts, hallucinations, paranoia, and symptoms of shani. Past Psychiatric History Current OP Treatment: no current treatment Prior Psych Hospitalizations: other (he reports one hospitalization in [facility] several years ago) (1) Benzodiazepine abuse (2) Opiate abuse, continuous (3) Cocaine abuse Patient reports a history of depression. He denies any history of suicide attempts. He has no outpatient providers currently. Past Medical/Surgical History Problem List: (1) IVDU (intravenous drug user) (2) Hypothyroidism (3) Hypertension Allergies Allergies: Coded Allergies: No Known Allergies (Unverified , 06/27/16) Home Medications Scheduled Bacitracin (Topical) (Bacitracin), 1 APPLN TOP BID Buprenorphine Hcl-Naloxone Hcl (Suboxone 2-0.5 Mg), Unknown Dose SL BID Citalopram Hydrobromide (Celexa), 40 MG PO DAILY Diazepam (Valium), 10 MG PO QID Diazepam (Valium), 10 MG PO Q2-4H Diazepam (Valium), Unknown Dose PO UD Levetiracetam (Keppra), 500 MG PO BID Levothyroxine Sodium (Synthroid), 150 MCG PO DAILY Loperamide Hcl (Imodium), 2 MG PO UD Melatonin (Melatonin Maximum Strengt), 1 TAB PO HS Metoprolol Tartrate (Lopressor) (Lopressor), 50 MG PO BID Multivitamin (Multivitamin), 1 TAB PO DAILY Pantoprazole (Protonix), 40 MG PO BID Sucralfate (Carafate), 1 GM PO QID Scheduled PRN Acetaminophen Tab (Tylenol), 1-2 TABS PO Q4 PRN for Pain Calcium Carbonate (Tums), 500 MG PEG UD PRN for Heartburn Clonidine Hcl (Catapres), 0.1 MG PO QID PRN for Anxiety Dicyclomine Hcl (Bentyl), 20 MG PO TID PRN for STOMACH CRAMPS Diphenhydramine Hcl (Benadryl Allergy), 1-2 CAP PO Q6 PRN for ALLERGIC REACTION Docusate Sodium (Colace), 1 CAP PO DAILY PRN for Constipation Doxepin Hcl (Doxepin), 50-100 MG PO HS PRN for Insomnia Hydrocortisone 1% (Hydrocortisone 1%), Unknown Dose TOP UD PRN for Itching Ibuprofen (Advil), 1-2 TABS PO Q4 PRN for Headache or Pain Ondansetron Hcl (Zofran), 8 MG PO TID PRN for Nausea or Vomiting Promethazine Hcl (Phenergan), 25 MG PO TID PRN for Nausea or Vomiting Miscellaneous Medications Tamsulosin Hcl (Flomax), 0.4 MG PO Family History No pertinent family history Substance History Per EMS report, the patient admitted to using alcohol the day prior to presentation, but he now denies that. He has a long history of abusing multiple substances, including prescription opiates pain medications, benzodiazepines, cocaine (which she injects IV), Suboxone. Last use was 3 days ago. He has a history of at least one previous inpatient rehabilitation in [place] in 1988 Personal History Relationship History: Additional Comments: The patient states he lives with his and granddaughter in [place], [place], which is outside of [place]. 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 Review of Systems 10 systems were reviewed, and are negative except as stated above. Examination Vital Signs Vital Signs Past 12 Hours Date Time Temp Pulse Resp B/P Pulse Ox O2 Delivery O2 Flow Rate FiO2 06/29/16 11:02 36.7 56 20 97/59 96 Room Air 06/29/16 07:15 Room Air 06/29/16 07:13 36.6 53 20 103/67 97 Room Air 06/29/16 04:00 96 Room Air 06/29/16 03:28 36.6 55 17 96/54 96 Room Air Laboratory Results Last 24 Hours Test 06/28/16 12:33 06/28/16 12:35 06/29/16 05:20 Sodium Level 141 mmol/L 146 mmol/L Potassium Level 4.4 mmol/L 3.8 mmol/L Chloride Level 106 mmol/L 112 mmol/L Carbon Dioxide Level 34 mmol/L 28 mmol/L Anion Gap 1.0 mmol/L 6.0 mmol/L Blood Urea Nitrogen 13 mg/dl 15 mg/dl Creatinine 0.94 mg/dl 0.87 mg/dl Est Creatinine Clear Calc Drug Dose 77.3 ml/min 76.2 ml/min Estimated GFR () 103.2 110.3 Estimated GFR (Non- 89.0 95.1 BUN/Creatinine Ratio 13.9 17.2 Random Glucose 78 mg/dl 70 mg/dl Calcium Level 8.3 mg/dl 7.5 mg/dl Total Bilirubin 0.3 mg/dl Aspartate Amino Transf (AST/SGOT) 12 U/L Alanine Aminotransferase (ALT/SGPT) 12 U/L Alkaline Phosphatase 71 U/L Total Protein 5.8 gm/dl Albumin 3.0 gm/dl Globulin 2.8 gm/dl Albumin/Globulin Ratio 1.1 Salicylates Level 13.8 mg/dl White Blood Count 5.80 K/uL 5.95 K/uL Red Blood Count 3.67 M/uL 3.56 M/uL Hemoglobin 11.9 g/dL 11.8 g/dL Hematocrit 36.4 % 34.6 % Mean Corpuscular Volume 99.2 fL 97.2 fL Mean Corpuscular Hemoglobin 32.4 pg 33.1 pg Mean Corpuscular Hemoglobin Concent 32.7 g/dl 34.1 g/dl RDW Standard Deviation 49.6 fL 48.8 fL RDW Coefficient of Variation 13.8 % 13.6 % Platelet Count 220 K/uL 228 K/uL Mean Platelet Volume 9.8 fL 9.8 fL Neutrophils (%) (Auto) 48.1 % Lymphocytes (%) (Auto) 41.8 % Monocytes (%) (Auto) 6.1 % Eosinophils (%) (Auto) 3.0 % Basophils (%) (Auto) 0.7 % Neutrophils # (Auto) 2.86 K/uL Lymphocytes # (Auto) 2.49 K/uL Monocytes # (Auto) 0.36 K/uL Eosinophils # (Auto) 0.18 K/uL Basophils # (Auto) 0.04 K/uL Immature Granulocyte % (Auto) 0.3 % Immature Granulocyte # (Auto) 0.02 K/uL Magnesium Level 2.2 mg/dl Thyroid Stimulating Hormone (TSH) 3.750 uIu/ml Mental Examination During interview pt is: alert and oriented Appearance: other (hospital gown, disheveled) Eye contact is: poor (keeps eyes closed for most of the interview) Motor behavior is: no abnormal motor movements Speech: other (minimal, slowed) Affect: constricted, other (sleepy) Mood is: other ("sleepy") Thought process: goal directed Thought content: reality based without delusions Suicidal thought are: denied Homicidal thoughts are: denied Hallucinations: denies auditory, denies visual Insight: impaired Judgement: impaired Impression / Recommendations Impression 56-year-old white male from [place] who came to [facility] for inpatient substance abuse treatment, then developed withdrawal symptoms, and was transferred to the hospital. Recommendations (1) Depression Patient was previously on citalopram 40 mg daily, but has not taken it for the past year in the setting of noncompliance and substance abuse. We'll resume a lower dose of 20 mg daily, and defer further management to the physician at [facility]. There is no indication for inpatient psychiatric hospitalization, and he should return to rehabilitation once medically cleared. (2) Opiate abuse, continuous Return to rehabilitation at [facility]. Do not prescribe controlled substances outside of the inpatient setting. (3) Benzodiazepine abuse See above (4) Cocaine abuse See above (5) Acute drug withdrawal syndrome with perceptual disturbance Hallucinations were in the context of withdrawal and have resolved. Management of substance dependence and withdrawal per primary team.
--- NOTE | 2016-06-29 13:07 | Hospitalist Progress Note ---
Hospitalist Progress Note Date of Service Jun 29, 2016. (Jane Jackson ., TOANC) Subjective Pt evaluation today including: conversation w/ patient, physical exam, chart review, lab review, review of inpatient medication list Pain: None PO Intake: NPO Voiding: no voiding problems Patient reports feeling very fatigued. He has been kept NPO after midnight for EGD today. He complains that he is hungry and does not want to wait much longer for procedure. He states that he has chronic tingling in his feet bilaterally. The patient denies fevers, chills, sweats, chest pain, palpitations, claudication, cough, wheezing, shortness of breath, nausea, vomiting, abdominal pain, dysuria, hematuria, urinary retention, paralysis, weakness, new incidence of numbness and tingling. Additional Comments: See HPI for pertinent positives and negatives. All other systems reviewed and negative. (Jane Jackson ., PA-C) Objective Vital Signs Date Time Temp Pulse Resp B/P Pulse Ox O2 Delivery O2 Flow Rate FiO2 06/29/16 12:00 96 Room Air 06/29/16 11:02 36.7 56 20 97/59 96 Room Air 06/29/16 07:15 Room Air 06/29/16 07:13 36.6 53 20 103/67 97 Room Air 06/29/16 04:00 96 Room Air 06/29/16 03:28 36.6 55 17 96/54 96 Room Air 06/29/16 00:01 98 Room Air 06/28/16 23:09 36.2 53 15 131/77 98 Room Air 06/28/16 22:14 Room Air 06/28/16 19:30 97 Room Air 06/28/16 19:00 36.6 53 16 113/67 97 Room Air 06/28/16 16:05 36.6 57 20 105/64 96 Room Air 06/28/16 15:55 95 Room Air (Jane Jackson ., LOPEZ-C) Physical Exam General Appearance: WD/WN, no apparent distress Eyes: normal inspection, PERRL, EOMI ENT: normal ENT inspection, hearing grossly normal, pharynx normal Neck: supple, no JVD, trachea midline Respiratory/Chest: lungs clear, normal breath sounds, no respiratory distress, + decreased breath sounds Cardiovascular: no gallop, no murmur, + bradycardia (regular rhythm) Abdomen: normal bowel sounds, non tender, soft Extremities: non-tender, normal inspection, no pedal edema Neurologic/Psychiatric: alert, normal mood/affect, oriented x 3 Skin: normal color, warm/dry, no rash (Jane Jackson .CESAR) Laboratory Results Last 24 Hours Test 06/29/16 05:20 White Blood Count 5.95 K/uL Red Blood Count 3.56 M/uL Hemoglobin 11.8 g/dL Hematocrit 34.6 % Mean Corpuscular Volume 97.2 fL Mean Corpuscular Hemoglobin 33.1 pg Mean Corpuscular Hemoglobin Concent 34.1 g/dl Platelet Count 228 K/uL Mean Platelet Volume 9.8 fL Neutrophils (%) (Auto) 48.1 % Lymphocytes (%) (Auto) 41.8 % Monocytes (%) (Auto) 6.1 % Eosinophils (%) (Auto) 3.0 % Basophils (%) (Auto) 0.7 % Neutrophils # (Auto) 2.86 K/uL Lymphocytes # (Auto) 2.49 K/uL Monocytes # (Auto) 0.36 K/uL Eosinophils # (Auto) 0.18 K/uL Basophils # (Auto) 0.04 K/uL RDW Standard Deviation 48.8 fL RDW Coefficient of Variation 13.6 % Immature Granulocyte % (Auto) 0.3 % Immature Granulocyte # (Auto) 0.02 K/uL Sodium Level 146 mmol/L Potassium Level 3.8 mmol/L Chloride Level 112 mmol/L Carbon Dioxide Level 28 mmol/L Anion Gap 6.0 mmol/L Blood Urea Nitrogen 15 mg/dl Creatinine 0.87 mg/dl Est Creatinine Clear Calc Drug Dose 76.2 ml/min Estimated GFR () 110.3 Estimated GFR (Non- 95.1 BUN/Creatinine Ratio 17.2 Random Glucose 70 mg/dl Calcium Level 7.5 mg/dl Magnesium Level 2.2 mg/dl Thyroid Stimulating Hormone (TSH) 3.750 uIu/ml (Jane Jackson .CESAR) Diagnostic Results Reviewed EKG and agree with interpretation as follows: 47 bpm, sinus bradycardia (Jane Jackson PA-C) Assessment and Plan 56 y/o male with a history of IVDA, depression, HTN, BPH and hypothyroidism who presented to the ED after developing nausea, vomiting, and hallucinations after checking himself in at [facility] rehabilitation [facility] in [place]. Per [facility] records, the patient was found to have bright red hematemesis. Pt has history of cocaine, oxycodone, hydrocodone and benzodiazepine abuse and is on Suboxone. Pt had been scheduled for a taper of his Valium per [facility] records. Pt was awake and oriented with VSS upon arrival. Multiple drug withdrawal--drug abuse history including cocaine, oxycodone, hydrocodone, benzos -Admit to telemetry -Continue Valium taper per [facility] records: Valium 10 mg PO TID x 1 day, 10 mg PO BID x 2 days, 5 mg PO TID x 2 days, 5 mg PO BID x 2 days, 5 mg PO qhs x 2 days then stop. -Consult psychiatry, appreciate recs: agree with Valium taper. Decrease Celexa to 20 mg PO qd as pt had not been taking it for the last year. Discharge back to [facility] rehab when medically stable to continue detox -Lorazepam 1 mg IV q2h prn withdrawal s/s for now -Continue Keppra 500 mg PO BID -Repeat salicylates level at 13.8 -No withdrawal s/s so far, if pt begins to exhibit these, will also initiate Suboxone taper Hematemesis, GERD -Continue Protonix 40 mg PO BID and Carafate 1 gm PO QID -Consult GI, appreciate recs: Pt for EGD today, continue PPI and carafate Depression -Decrease to Celexa 20 mg PO qd per psych HTN--stable -Continue Lopressor 50 mg PO BID, hold if SBP <90 or HR<60 BPH -Continue tamsulosin 0.4 mg PO qhs Hypothyroidism -Continue Synthroid 150 mcg PO qd Code Status -Level I, FULL RESUSCITATION STATUS Dispo -Pt can return to [facility] when medically stable to continue detox. Pt will need insurance prior auth prior to discharge. -Anticipate possible discharge tomorrow. Case management notified and will start authorization. (Jane Jackson ., CESAR) Reviewed: Pt Seen/Exam by Me, HO Notes, Labs (Kelly Mcneill MD) History Physician Instrument Tester Supervision Note: I interviewed and examined the patient. Discussed with LOPEZ Jackson and agree with findings and plan as documented in the note. Any exceptions or clarifications are listed here: No signs of withdrawal, tapering down valium. Pt states he is not normally on Keppra--> must have been as a preventive med at rehab. Does have h/o seizures though from benzo withdrawal in the past. Pt feels swollen with IVFs. Had EGD which shwed Long segment Magallon's which pt has a known history of. Also with gastritis and duodenitis, recommended continuing PPI once daily. Vitals reviewed NAD Eyelids wih edema RRR no wcr CTAB no wcr Abd soft NT ND +BS Ext bilat hands with edema, no edemal in LEs, 2+ DP pulses 56 yo male with polysubstance abuse. Salicylate level improved on repeat test, no metabolic acidosis. Vitals all stable continue valium taper given h/o seizures from benzo withdrawal in the past, suboxone taper to be considered if has opiate withdrawal -d/c keppra -appreciate Psych consult, lowered dose Celexa -to rehab when medically stable/detoxed--> tomorrow GI bleeding, GERD-spitting up blood after cocaine use--> seems to be coming from GI tract but could be from posterior epistaxis? No active bleeding on EGD but with long segment Magallon's and gastritis, duodenitis -consult to GI appreciated -continue PPI and change to once daily, d/c carafate -will need f/u on PATH results with GI -continue surveillance for Magallon's q3 years with EGDs Documented By: Kelly Mcneill (Kelly Mcneill MD)
[2016-06-29] MEDS ORDERED: MIDAZOLAM HCL 1 MG/ML 2ML VIAL ONE (15:52)
[2016-06-29] MEDS ORDERED: PROPOFOL IV EMULSION 10 MG/ML 20 ML VIAL IV ONE (15:53)
[2016-06-29] MEDS ORDERED: LIDOCAINE HCL 2% 2 ML VIAL (20MG/ML) ONE (15:53)
[2016-06-29] MEDS ORDERED: ONDANSETRON INJ 2 MG/ML 2 ML VIAL ONE (15:54)
--- NOTE | 2016-06-29 15:56 | History & Physical Bridge Note ---
H&P Re-Evaluation Bridge Note: I have examined the patient, reviewed the History & Physical and in the interval since the performance of the History & Physical I have noted the following changes of clinical significance: No changes noted
[2016-06-29] MEDS ORDERED: EpHEDrine SULFATE 50MG/5ML SYR ONE (16:20)
--- NOTE | 2016-06-29 16:29 | GI REPORT ---
Procedure Date: 06/29/2016 4:09 PM Procedure: Upper GI endoscopy Indications: Hematemesis Medicines: Propofol per Anesthesia Complications: No immediate complications. Estimated blood loss: Minimal. Estimated Blood Loss: Estimated blood loss was minimal. Procedure: Pre-Anesthesia Assessment: - Prior to the procedure, a History and Physical was performed, and patient medications and allergies were reviewed. The patient's tolerance of previous anesthesia was also reviewed. The risks and benefits of the procedure and the sedation options and risks were discussed with the patient. All questions were answered, and informed consent was obtained. Prior Anticoagulants: The patient has taken no previous anticoagulant or antiplatelet agents. ASA Grade Assessment: II - A patient with mild systemic disease. After reviewing the risks and benefits, the patient was deemed in satisfactory condition to undergo the procedure. After obtaining informed consent, the endoscope was passed under direct vision. Throughout the procedure, the patient's blood pressure, pulse, and oxygen saturations were monitored continuously. The scope was introduced through the mouth, and advanced to the second part of duodenum. The upper GI endoscopy was accomplished without difficulty. The patient tolerated the procedure well. Findings: The upper third of the esophagus and middle third of the esophagus were normal. The esophagus and gastroesophageal junction were examined with white light. There were esophageal mucosal changes consistent with long-segment Magallon's esophagus. These changes involved the mucosa at the upper extent of the gastric folds (39 cm from the incisors) extending to the Z-line (35 cm from the incisors). Hiatal narrowing was identified at 39 cm. The maximum longitudinal extent of these esophageal mucosal changes was 4 cm in length. Mucosa was biopsied with a cold forceps for histology. Estimated blood loss was minimal. Verification of patient identification for the specimen was done by the physician and supply chain technician using the patient's name and medical record number. Two localized, 10 mm non-bleeding erosions were found in the gastric antrum. There were no stigmata of recent bleeding. Biopsies were taken with a cold forceps for Helicobacter pylori testing. Estimated blood loss was minimal. Verification of patient identification for the specimen was done by the physician and supply chain technician using the patient's name and medical record number. Patchy moderate inflammation characterized by congestion (edema) and erythema was found in the duodenal bulb and in the second part of the duodenum. The cardia and gastric fundus were normal on retroflexion. Retained gastric contents are not identified on this exam. Impression: - Normal upper third of esophagus and middle third of esophagus. - Esophageal mucosal changes consistent with long-segment Magallon's esophagus. Biopsied. - Non-bleeding erosive gastropathy. Biopsied. - Duodenitis. Recommendation: - Return patient to [facility] for [facility] care. - Advance diet as tolerated. - Use Prilosec (omeprazole) 40 mg PO daily. - Await pathology results. MD Jakob Oscar MD 06/29/2016 4:28:48 PM This report has been signed electronically. Note Initiated On: 06/29/2016 4:09 PM I attest to the content of the Intraoperative Record and orders documented therein, exceptions below
--- NOTE | 2016-06-29 17:01 | Anesthesiology Progress Note ---
Anesthesia Post Op Note Date & Time Jun 29, 2016 at 17:01 Vital Signs Pain Intensity: 0 Vital Signs Past 12 Hours Date Time Temp Pulse Resp B/P Pulse Ox O2 Delivery O2 Flow Rate FiO2 06/29/16 16:52 73 20 119/69 98 Room Air 06/29/16 16:40 71 20 105/55 100 Room Air 06/29/16 16:26 72 20 92/52 100 Room Air 06/29/16 15:05 36.9 53 20 123/73 97 Room Air 06/29/16 12:00 96 Room Air 06/29/16 11:02 36.7 56 20 97/59 96 Room Air 06/29/16 07:15 Room Air 06/29/16 07:13 36.6 53 20 103/67 97 Room Air Notes Mental Status: alert / awake / arousable, participated in evaluation Pt Amnestic to Procedure: Yes Nausea / Vomiting: adequately controlled Pain: adequately controlled Airway Patency, RR, SpO2: stable & adequate BP & HR: stable & adequate Hydration State: stable & adequate Anesthetic Complications: no major complications apparent
[2016-06-29] MEDS: TAMSULOSIN HCL 0.4 MG CAP PO SCH (20:09)
[2016-06-30 00:01] VITALS: BP 104/65; PULSE 73; TEMP 36.5; O2SAT 97
[2016-06-30 01:48] VITALS: BP 105/65; PULSE 59
[2016-06-30] MEDS: CLONIDINE HCL 0.1 MG TAB PO PRN ×2 (02:08→11:12)
[2016-06-30 02:49] LABS: COCAINE, URINE 3490 NG/ML (CUTOFF=100); COD UR 4370 NG/ML (CUTOFF=50); HYDROCOD UR NEGATIVE NG/ML (CUTOFF=50); HYDROMOR UR NEGATIVE NG/ML (CUTOFF=50); HYDROXYETHYLFLURAZEPAM CONF NEGATIVE NG/ML (CUTOFF=50); HYDROXYMIDAZOLAM NEGATIVE NG/ML (CUTOFF=50); HYDROXYTRIAZOLAM CONF NEGATIVE NG/ML (CUTOFF=50); MORPHINE UR 263 NG/ML (CUTOFF=50); NORHYDROCODONE CONF UR NEGATIVE NG/ML (CUTOFF=50); OXYMORPH UR NEGATIVE NG/ML (CUTOFF=50); TEMAZEPAM CONF >2000 NG/ML (CUTOFF=50)
[2016-06-30] MEDS: LEVOTHYROXINE 150 MCG TAB PO SCH (06:03)
[2016-06-30 06:06] LABS: BASO % 0.2 %; BASO ABS # 0.01 K/uL (0-0.2); COMPLETE YES; EOS % 2.2 %; HEMATOCRIT 32.4 % (42-52); LYMPH % 41.5 %; LYMPH ABS # 2.06 K/uL (1.2-3.4); MEAN CELL VOLUME 99.1 fL (80-100); MEAN CORPUSCULAR HGB CONC 33.3 g/dl (32-36); MEAN PLATELET VOLUME 9.8 fL (7.4-10.4); MONO % 5.2 %; NEUT % 50.9 %; PLATELET COUNT 189 K/uL (130-400); RED BLOOD COUNT 3.27 M/uL (4.7-6.1); WHITE BLOOD COUNT 4.96 K/uL (4.8-10.8)
[2016-06-30 06:43] LABS: BUN/CREATININE RATIO 12.6 (10-20); CALCIUM 7.5 mg/dl (8.5-10.1); CREATININE 0.95 mg/dl (0.60-1.40); POTASSIUM 3.6 mmol/L (3.5-5.1)
[2016-06-30 07:41] VITALS: BP 95/58; PULSE 52; TEMP 36.5; O2SAT 98
[2016-06-30] MEDS ORDERED: OMEP40CA41 PO (07:45)
[2016-06-30] MEDS ORDERED: CLX20 PO (07:45)
[2016-06-30] MEDS ORDERED: VLM5 PO (07:45)
[2016-06-30] MEDS ORDERED: CITALOPRAM 20 MG TAB PO SCH (09:00)
[2016-06-30] MEDS ORDERED: BUPRENORPHINE/NALOXONE 2/0.5MG 1 TAB PO SCH (09:00)
[2016-06-30] MEDS ORDERED: PANTOprazole SOD 40 MG TAB PO SCH (09:00)
[2016-06-30] MEDS: METOPROLOL TARTRATE 50 MG TAB PO SCH (09:00)
[2016-06-30] MEDS ORDERED: DIAZEPAM 5MG TAB PO SCH (09:00)
[2016-06-30] MEDS: SUCRALFATE 1 GM TAB PO SCH ×2 (09:00→12:12)
[2016-06-30] MEDS: MULTIVITAMIN TAB PO SCH (09:01)
--- NOTE | 2016-06-30 09:11 | Discharge Instructions ---
Discharge Instructions Admission Reason for Admission: Acute Drug Withdrawal Syndrome (Jane Jackson .CESAR) Discharge Discharge Diagnosis / Problem: Acute drug withdrawal syndrome (Jane Jackson PA-C) Discharge Goals Goal(s): Decrease discomfort, Diagnostic testing, Therapeutic intervention (Jane Jackson PA-C) Activity Recommendations Activity Limitations: resume your previous activity . (Jane Jackson PA-C) Instructions / Follow-Up Instructions / Follow-Up You were admitted to the hospital with nausea, vomiting, and hallucinations after being admitted to [facility]. You were admitted to the telemetry unit for cardiac monitoring, and you were monitored for any more signs or symptoms of withdrawal. You were placed on a Valium taper per [facility] records and psychiatry's recommendations. Due to vomiting or regurgitating loren red blood, an upper endoscopy was performed. This did not show any active bleeding. It did confirm your previous diagnosis of Magallon's esophagus, as well as a non-bleeding erosive gastropathy and inflammation of the first section of the small intestine. Some biopsies were taken from your GI tract were taken during this procedure, and the results are pending. You will follow up with Dr. Rodriguez with gastroenterology regarding the pathology results in 1 week. Medications: *You were started on a Valium taper in the hospital per [facility] records. To continue the taper, you will take Valium 10 mg by mouth twice a day for 2 days, 5 mg by mouth three times a day for 2 days, 5 mg by mouth twice a day for 2 days, 5 mg by mouth once at bedtime for 2 days, then stop. *You were also started on a Suboxone taper the morning of your discharge. You have been started on Suboxone 4 mg sublingual twice a day for 2 days. [facility] will continue this taper as appropriate. *Your Celexa dose was decreased to 20 mg by psychiatry as it has been a long time since you have taken it regularly. This can be titrated or adjusted as necessary later. *Dr. Rodriguez, the coal feeder operator, recommended that you take omeprazole ( Prilosec) 40 mg by mouth once a day for your Magallon's esophagus and gastropathy. Since you are not having any GI symptoms, you may discontinue the sucralfate (Carafate). *Since you do not have a history of taking Keppra and have not had any seizures while inpatient from benzodiazepine withdrawal, you may discontinue the Keppra on discharge. *You may resume your other home medications as before. Follow up: *A referral has been placed for you to follow up with Dr. Rodriguez in 1 week to go over the pathology results from the biopsies. Please seek medical attention if you experience fevers, chills, sweats, tremors , seizures, lightheadedness, loss of consciousness, visual or auditory hallucinations, chest pain, shortness of breath, nausea, or vomiting. (Jane Jackson, CESAR) Current Hospital Diet Patient's current hospital diet: Regular Diet (Jane Jackson PA-C) Discharge Diet Recommended Diet: Regular Diet (Jane Jackson PA-C) Procedures Procedures Performed: EGD WITH BX (Jane Jackson PA-C) Pending Studies Studies pending at discharge: yes List of pending studies: Esophagus and stomach biopsies (Jane Jackson PA-C) Medical Emergencies . Who to Call and When: Medical Emergencies: If at any time you feel your situation is an emergency, please call 911 immediately. . (Jane Jackson PA-C) Non-Emergent Contact Non-Emergency issues call your: Primary Care Provider Call Non-Emergent contact if: you have a fever, you have any medication questions . (Jane Jackson PA-C) Past History Medical & Surgical History: (1) Opiate abuse, continuous (2) Benzodiazepine abuse (3) Cocaine abuse (4) Acute drug withdrawal syndrome with perceptual disturbance (Jane Jackson, LOPEZ-C) . "Provider Documentation" section prepared by Jane Jackson. (Jane Jackson ., TOANC) VTE Core Measure Inpt VTE Proph given/why not?: SCD's (Jane Jackson PA-C)
--- NOTE | 2016-06-30 09:27 | Discharge Summary ---
Discharge Summary Date of Service Jun 30, 2016. (Jane Jackson PA-C) Discharge Summary Admission Date: Jun 28, 2016 at 02:04 Discharge Date: Jun 30, 2016 Discharge Disposition: Rehab (Substance abuse rehab, [facility]) Principal Diagnosis: Acute multiple drug withdrawal Procedures: Patient: LEDY MOSELEY Admit Date: 06/27/1701/26/17 Med Rec: [id number] Acct ID: [id number] [~ rep ct labl] Page 2of 2 p: [~ rep prt dt last] [~ rep prt tm last] [~ rep ct labl] Page 1of 2 p: [~ rep prt dt last] [~ rep prt tm last] GI RE[place] Patient: LEDY MOSELEY Admit Date: 06/27/1701/27/17 Med Rec: [id number] Att Phy: Grzegorz Hennessy M.D. Acct ID: [id number] Seema Phy: No Doctor, Assigned Date: 1960 Ref Phy: Self, Referred Fam Phy: No Doctor, Assigned Age: 56 Location: [facility] Sex: M Room/Bed: [facility] MNE:PROVATION REPORT #: [id number] CC: Jakob Rodriguez M.D. Endcc: DICTATED BY: Jakob Rodriguez M.D. Procedure Date: 06/29/2016 4:09 PM Procedure: Upper GI endoscopy Indications: Hematemesis Medicines: Propofol per Anesthesia Complications: No immediate complications. Estimated blood loss: Minimal. Estimated Blood Loss: Estimated blood loss was minimal. Procedure: Pre-Anesthesia Assessment: - Prior to the procedure, a History and Physical was performed, and patient medications and allergies were reviewed. The patient's tolerance of previous anesthesia was also reviewed. The risks and benefits of the procedure and the sedation options and risks were discussed with the patient. All questions were answered, and informed consent was obtained. Prior Anticoagulants: The patient has taken no previous anticoagulant or antiplatelet agents. ASA Grade Assessment: II - A patient with mild systemic disease. After reviewing the risks and benefits, the patient was deemed in satisfactory condition to undergo the procedure. After obtaining informed consent, the endoscope was passed under direct vision. Throughout the procedure, the patient's blood pressure, pulse, and oxygen saturations were monitored continuously. The scope was introduced through the mouth, and advanced to the second part of duodenum. The upper GI endoscopy was accomplished without difficulty. The patient tolerated the procedure well. Findings: The upper third of the esophagus and middle third of the esophagus were normal. The esophagus and gastroesophageal junction were examined with white light. There were esophageal mucosal changes consistent with long-segment Magallon's esophagus. These changes involved the mucosa at the upper extent of the gastric folds (39 cm from the incisors) extending to the Z-line (35 cm from the incisors). Hiatal narrowing was identified at 39 cm. The maximum longitudinal extent of these esophageal mucosal changes was 4 cm in length. Mucosa was biopsied with a cold forceps for histology. Estimated blood loss was minimal. Verification of patient identification for the specimen was done by the physician and hvac refrigeration technician using the patient's name and medical record number. Two localized, 10 mm non-bleeding erosions were found in the gastric antrum. There were no stigmata of recent bleeding. Biopsies were taken with a cold forceps for Helicobacter pylori testing. Estimated blood loss was minimal. Verification of patient identification for the specimen was done by the physician and hvac refrigeration technician using the patient's name and medical record number. Patchy moderate inflammation characterized by congestion (edema) and erythema was found in the duodenal bulb and in the second part of the duodenum. The cardia and gastric fundus were normal on retroflexion. Retained gastric contents are not identified on this exam. Impression: - Normal upper third of esophagus and middle third of esophagus. - Esophageal mucosal changes consistent with long-segment Magallon's esophagus. Biopsied. - Non-bleeding erosive gastropathy. Biopsied. - Duodenitis. Recommendation: - [facility] to [facility] for [facility]. - Advance diet as tolerated. - Use Prilosec (omeprazole) 40 mg PO daily. - Await pathology results. MD Jakob Oscar MD 06/29/2016 4:28:48 PM This report has been signed electronically. Note Initiated On: 06/29/2016 4:09 PM I attest to the content of the Intraoperative Record and orders documented therein, exceptions below Dictated: 06/29/16 1602 Signed: 06/29/16 [id number] The status of this report is Signed. Draft = Not yet reviewed or approved by Medical Physician. Signed = Reviewed and approved by Medical Physician. <ConsultingPhyMNE>f pt consult dr durham</ConsultingPhyMNE> <FamilyPhyMNE>f pt fam dr durham</FamilyPhyMNE> <OtherPhyMNE>f pt other dr durham</OtherPhyMNE> < PrimaryPhyMNE>f pt prim care dr durham</PrimaryPhyMNE> <ReferringPhyMNE>f pt referring dr durham</ReferringPhyMNE> (Jane Jackson, PAJuddC) Medication Reconciliation New Medications: Omeprazole (Prilosec) 40 Mg Cap 40 MG PO DAILY for 30 Days, #30 CAP Citalopram (Citalopram Hydrobromide) 20 Mg Tab 20 MG PO QAM for 30 Days, #30 TAB Take 1 tablet by mouth daily. Diazepam (Diazepam) 5 Mg Tab 10 MG PO UD for 8 Days, #20 TAB 2 tabs twice a day x 2 days, 1 tab three times a day x 2 days, 1 tab twice a day x 2 days, 1 tab at bedtime x 2 days, stop. Continued Medications: Acetaminophen Tab (Tylenol) 325 Mg Tab 1-2 TABS PO Q4 PRN for Pain, TAB PRN FOR GENERALIZED PAIN, HEACHACHE, OR FEVER, DO NOT EXCEED 3000MG IN 24HOURS Bacitracin (Topical) (Bacitracin) 500 Unit/Gm Oin 1 APPLN TOP BID for 7 Days, #15 GM APPLY TOPICALY TO MINOR SCRAPES AND ABRASIONS NEEDED, AFTER CLEANING WITH SOAP AND WATER, CONTRAINDICTED IN JENSEN Buprenorphine Hcl-Naloxone Hcl (Suboxone 2-0.5 Mg) 1 Sub Sub Unknown Dose SL BID TAPER 4MG BID FOR 2 DAYS, 2MG BID FOR 2 DAYS, 1MG BID FOR 2 DAYS, THEN 0.5MG BID FOR 2 DAYS, THEN D/C Calcium Carbonate (Tums) 500 Mg Chew 500 MG PEG UD PRN for Heartburn Clonidine Hcl (Catapres) 0.1 Mg Tab 0.1 MG PO QID PRN for Anxiety, TAB PRN FOR INCREASED VS OR AX Diazepam (Valium) 10 Mg Tab 10 MG PO QID, TAB PRN EXTRA @ EACH MEDLINE PER NURSES JUDGEMENT FOR 10 DAYS THEN D/C Diazepam (Valium) 10 Mg Tab 10 MG PO Q2-4H, TAB PRN Q2-4HRS OVERNIGHT PER NURSES JUDGEMENT FOR 10 DAYS THEN D/C Dicyclomine Hcl (Bentyl) 10 Mg Cap 20 MG PO TID PRN for STOMACH CRAMPS , CAP Diphenhydramine Hcl (Benadryl Allergy) 25 Mg Tab 1-2 CAP PO Q6 PRN for ALLERGIC REACTION PRN FOR MINOR ALLERGIC REACTION, ITCHING AND HIVES, DO NOT EXCEED 300MG IN 24HOURS Docusate Sodium (Colace) 100 Mg Cap 1 CAP PO DAILY PRN for Constipation for 30 Days, #30 CAP GIVE WITH 8OZ OF WATER Doxepin Hcl (Doxepin) 100 Mg Cap 50-100 MG PO HS PRN for Insomnia, CAP Hydrocortisone 1% (Hydrocortisone 1%) 90 Appln/30 Gm Cr Unknown Dose TOP UD PRN for Itching Ibuprofen (Advil) 200 Mg Tab 1-2 TABS PO Q4 PRN for Headache or Pain, TAB PRN FOR JOINT/MUSCLE PAIN, HEADACHE. OR MENSTRUAL CRAMPING. DO NOT EXCEED 1200MG IN 24 HOURS Levothyroxine Sodium (Synthroid) 150 Mcg Tab 150 MCG PO DAILY, TAB Loperamide Hcl (Imodium) 2 Mg Cap 2 MG PO UD, CAP TAKE 2MG PO AFTER LOOSE STOOLS PRN NOT TO EXCEED 8MG/24 HOURS Melatonin (Melatonin Maximum Strengt) 5 Mg Tab 1 TAB PO HS for 30 Days, #30 TAB Metoprolol Tartrate (Lopressor) (Lopressor) 50 Mg Tab 50 MG PO BID, TAB MAY WEAN TOLERATED Multivitamin (Multivitamin) Tab 1 TAB PO DAILY, TAB Ondansetron Hcl (Zofran) 8 Mg Tab 8 MG PO TID PRN for Nausea or Vomiting, TAB Promethazine Hcl (Phenergan) 25 Mg Tab 25 MG PO TID PRN for Nausea or Vomiting, TAB Tamsulosin Hcl (Flomax) 0.4 Mg Cap 0.4 MG PO, CAP Discontinued Medications: Citalopram Hydrobromide (Celexa) 40 Mg Tab 40 MG PO DAILY, TAB Diazepam (Valium) 5 Mg Tab Unknown Dose PO UD, TAB TAPER, 10MG TID FOR 24 OURS, 10MG BID FOR 2 DAYS, 5MG TID FOR 2 DAYS, THEN 5MG BID FOR 2 DAYS, THEN 5MG AT HS FOR 2 DAYS THEN D/C Levetiracetam (Keppra) 250 Mg Tab 500 MG PO BID for 21 Days, #84 TAB Pantoprazole (Protonix) 40 Mg Tab 40 MG PO BID, #30 TAB Sucralfate (Carafate) 1 Gm Tab 1 GM PO QID, TAB Referrals At Discharge Follow up Referrals: [facility] Referral - Within 1 Week with Jakob Rodriguez M.D. Discharge Exam Patient complains that the swelling in his hands has remained unchanged, however he has not been keeping them elevated as instructed by Dr. Pabon overnight. He states that he feels palpitations intermittently which are accompanied by lightheadedness and shortness of breath. He denies any of those symptoms at this current moment, however. He still complains of some tingling in his feet, which is chronic. The patient denies fevers, chills, sweats, chest pain, claudication, cough, wheezing, nausea, vomiting, abdominal pain, dysuria, hematuria, urinary retention, paralysis, and weakness. Review of Systems: Constitutional: + fatigue, No chills, No fever, No sweats Eyes: No diplopia, No eye pain, No worsening of vision ENT: No hearing loss, No sore throat, No trouble swallowing Respiratory: + shortness of breath (intermittent with palpitations, none currently), No cough, No dyspnea on exertion, No wheezing Cardiovascular: + palpitations (intermittent), No chest pain, No edema Abdomen: No nausea, No pain, No vomiting Musculoskeletal: + swelling (in hands bilaterally), No joint pain, No muscle pain Genitourinary - Male: No dysuria, No hematuria, No urinary retention Neurologic: + numbness/tingling (in feet bilaterally, chronic), No paralysis , No weakness Integumentary: + rash, No color change, No itch Physical Exam: General Appearance: WD/WN, no apparent distress Eyes: normal inspection, PERRL, EOMI ENT: normal ENT inspection, hearing grossly normal, pharynx normal Neck: supple, no JVD, trachea midline Respiratory/Chest: lungs clear, normal breath sounds, no respiratory distress Cardiovascular: no gallop, no murmur, + bradycardia (regular rhythm) Abdomen / GI: normal bowel sounds, non tender, soft Extremities: normal inspection, no calf tenderness, no pedal edema, + swelling (hands bilaterally) Neurologic/Psychiatric: alert, normal mood/affect, oriented x 3 Skin: normal color, warm/dry, no rash (Jane Jackson ., PA-C) Hospital Course 56 y/o male with a history of IVDA, depression, HTN, BPH and hypothyroidism who presented to the ED after developing nausea, vomiting, and hallucinations after checking himself in at [facility] in [place]. Per [facility] records, the patient was found to have bright red hematemesis. Pt has history of cocaine, oxycodone, hydrocodone and benzodiazepine abuse and is on Suboxone. Pt had been scheduled for a taper of his Valium per [facility] records. Pt was awake and oriented with [facility]SS upon arrival. Multiple drug withdrawal--drug abuse history including cocaine, oxycodone, hydrocodone, benzos -Admit to telemetry -Continue Valium taper per [facility] records: 10 mg PO BID x 2 days, 5 mg PO TID x 2 days, 5 mg PO BID x 2 days, 5 mg PO qhs x 2 days then stop. -Consult psychiatry, appreciate recs: agree with Valium taper. Decrease Celexa to 20 mg PO qd as pt had not been taking it for the last year. Discharge back to [facility] rehab when medically stable to continue detox -Lorazepam 1 mg IV q2h prn withdrawal s/s. Pt did not require any while inpatient. -D/C Keppra. Pt has no history of taking Keppra in the past. Does have a history of seizures with benzo withdrawal, however no seizures while inpatient on Valium taper. -Repeat salicylates level at 13.8 -Anxiety, pain overnight. Suboxone taper started morning of discharge as per [facility] records. May continue at [facility] as appropriate. Hematemesis, GERD -Consult GI, appreciate recs: Recommend Prilosec 40 mg PO qd as pt had not been actually taking Protonix as an outpatient. Advance diet as tolerated, await pathology results -EGD: findings consistent with Magallon's esophagus, biopsies taken. Non- bleeding erosive gastropathy, biopsy taken. Evidence of duodenitis. -Can D/C Carafate as not symptomatic. PPI on discharge as above. Depression -Decrease to Celexa 20 mg PO qd per psych HTN--stable -Continue Lopressor 50 mg PO BID, hold if SBP <90 or HR<60 BPH -Continue tamsulosin 0.4 mg PO qhs Hypothyroidism -Continue Synthroid 150 mcg PO qd Code Status -Level I, FULL RESUSCITATION STATUS Dispo -Pt can return to [facility] when medically stable to continue detox. Pt will need insurance prior auth prior to discharge. Case management notified one day prior to discharge. -Medically stable for discharge. [facility] will provide transport for pt at noon. Total Time Spent: Greater than 30 minutes This includes examination of the patient, discharge planning, medication reconciliation, and communication with other providers. (Jane Jackson ., CESAR) Pathology Result from EGD: FINAL DIAGNOSIS A. STOMACH, ANTRUM, BIOPSY: 1. CHRONIC GASTRITIS. 2. NO SIGNIFICANT ACTIVITY (ACUTE INFLAMMATION) PRESENT. 3. IMMUNOSTAIN FOR HELICOBACTER PYLORI: NEGATIVE. B. ESOPHAGUS, 36 CM, BIOPSY: 1. 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 2. NEGATIVE FOR DYSPLASIA. 3. NO SQUAMOUS MUCOSA IDENTIFIED WITHIN SPECIMEN. C. ESOPHAGUS, 38 CM, BIOPSY: 1. 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 2. NEGATIVE FOR DYSPLASIA. 3. NO SQUAMOUS MUCOSA IDENTIFIED WITHIN SPECIMEN. (Kelly Mcneill MD) Discharge Instructions Please refer to the electronic Patient Visit Report (Discharge Instructions) for additional information. (Jane Jackson ., CESAR) Reviewed: Pt Seen/Exam by Me (Kelly Mcneill MD) History Physician Rug Hooker Supervision Note: I interviewed and examined the patient. Discussed with LOPEZ Jackson and agree with findings and plan as documented in the note. Any exceptions or clarifications are listed here: No signs of withdrawal, tapering down valium. Pt feels swollen with IVFs and h/ o IVDA in hands frequently causing venous sclerosis most likely. Pathology result came back after discharge and showed Magallon's but no dysplasia. Vitals reviewed NAD RRR no wcr CTAB no wcr Abd soft NT ND +BS Ext bilat hands with edema improved slightly from previous, no edemal in LEs, 2 + DP pulses 56 yo male with polysubstance abuse. Salicylate level improved on repeat test, no metabolic acidosis. Vitals all stable continue valium taper given h/o seizures from benzo withdrawal in the past, suboxone taper started on day of discharge for opiate withdrawal -d/c fredrick -appreciate Psych consult, lowered dose Celexa -to rehab when medically stable--> today GI bleeding, GERD-spitting up blood after cocaine use--> seems to be coming from GI tract but could have been from posterior epistaxis? No active bleeding on EGD but with long segment Magallon's and gastritis, duodenitis--> no dysplasia on path results -consult to GI appreciated -continue PPI and change to once daily, d/c carafate -continue surveillance for Magallon's q3 years with EGDs Documented By: Kelly Mcneill (Kelly Mcneill MD)
[2016-06-30 11:03] VITALS: BP 95/58; PULSE 52; TEMP 36.5; O2SAT 98
[2016-06-30 11:11] VITALS: BP 109/65; PULSE 57; TEMP 36.6; O2SAT 98
[2016-06-30 11:27] VITALS: BP 100/60; PULSE 54; TEMP 36.5; O2SAT 96
[2016-06-30] MEDS ORDERED: MAGNESIUM HYDROXIDE SUSP 30 ML UDC ONE (12:07)
[2016-06-30] MEDS ORDERED: NURSING VERBAL MED ORDER ONE (12:15)
[2016-07-02] MEDS ORDERED: DIAZEPAM 5MG TAB PO SCH (09:00)
[2016-07-04] MEDS ORDERED: DIAZEPAM 5MG TAB PO SCH (09:00)
[2016-07-06] MEDS ORDERED: DIAZEPAM 5MG TAB PO SCH (21:00)
== END 2016-06-30 13:07 | disposition other institution (70) | DRG 378 ==
LOC: ENRESERVDT → ENRESERVTM → C.EDA 21:57 → C.2T 06-28 02:04
PROVIDERS: ADMIT Hospitalist; ATTEND Hospitalist
PROC: 0DB58ZX Excision of Esophagus, Via Natural or Artificial Opening Endoscopic, Diagnostic (ICD-10-PCS; principal; 2016-06-29 14:55)
PROC: 0DB78ZX Excision of Stomach, Pylorus, Via Natural or Artificial Opening Endoscopic, Diagnostic (ICD-10-PCS; principal; 2016-06-29 14:55)
DX: K92.0 Hematemesis (principal); F11.23 Opioid dependence with withdrawal; F11.251 Opioid dependence with opioid-induced psychotic disorder with hallucinations; F14.23 Cocaine dependence with withdrawal; F14.251 Cocaine dependence with cocaine-induced psychotic disorder with hallucinations; F13.232 Sedative, hypnotic or anxiolytic dependence with withdrawal with perceptual disturbance; K22.70 Barrett's esophagus without dysplasia; K29.80 Duodenitis without bleeding; K31.9 Disease of stomach and duodenum, unspecified; F32.9 Major depressive disorder, single episode, unspecified; F41.9 Anxiety disorder, unspecified; G47.00 Insomnia, unspecified; N40.0 Benign prostatic hyperplasia without lower urinary tract symptoms; E03.9 Hypothyroidism, unspecified; I10 Essential (primary) hypertension; F17.200 Nicotine dependence, unspecified, uncomplicated; Z79.899 Other long term (current) drug therapy; Z91.128 Patient's intentional underdosing of medication regimen for other reason